=== PATIENT | female | born 1990 | race Caucasian/White ===

== ENCOUNTER → 2023-02-06 | Outpatient (CLI) | payer OTHER ==
--- NOTE | 2023-02-06 15:03 | Diagnostic Imaging Report ---
INDICATION: Supervision of normal . Anatomy scan. TECHNIQUE: Multiple real-time grayscale images were obtained over the gravid uterus. COMPARISON: None FINDINGS: A single live intrauterine gestation is visualized in variable presentation. heart tones measure 156 bpm. The placenta is posterior and not low lying. The GABI measures 15.7 cm. The cervix is closed and measures 5.3 cm in length. The kidneys, bladder, stomach, brain, four-chamber heart, three-vessel cord, spine, upper and lower extremities, and cord insertion are visualized and have a normal appearance. Biometrical measurements are as follows: Biparietal 4.64 cm, age 20 weeks 1 days. Head circumference 17.88 cm, age 20 weeks 3 days. Abdominal circumference 14.63 cm, age 20 weeks 0 days. Femur length 3.24 cm, age 20 weeks 1 days. Sonographic estimate age: 20 weeks 2 days. Sonographic estimated date of delivery: 06/24/2023. Estimated Weight: 329 gm (+/- 48 gm). LMP percentile: 8%. heart rate: 156 beats per minute. number: 1 of 1. IMPRESSION: 1. Single live intrauterine gestation measuring 20 weeks 2 days with an estimated due date of 06/24/2023. These are within range of the clinical dates. 2. Unremarkable anatomy scan. No sonographic abnormalities are identified. Dictated by: Dictated on workstation # [id number]
== END ==
LOC: RAD 09:39 → EDBD 10:00
PROVIDERS: ATTEND Obstetrics & Gynecology
DX: Z36.89 Encounter for other specified antenatal screening (principal); Z3A.20 20 weeks gestation of pregnancy
CPT/HCPCS: 76805